=== PATIENT | female | born 1985 | race Hispanic/Latino ===

== ENCOUNTER 2024-10-04 08:39 | Emergency (ER) | payer SELFPAY ==
--- NOTE | 2024-10-04 09:09 | ED.GENADULT ---
HPI - General Adult General Chief complaint: Upper Respiratory Infection Stated complaint: urinary irritation/body aches/congestion Mode of arrival: ambulatory Limitations: no limitations and other History of Present Illness HPI narrative: Pt presents for evaluation of sick symptoms for the past three days. Symptoms include fever, body aches, cough, chest congestion, mild SOB and left sided otalgia. No chills, nausea or vomiting. No recent sick contacts to her knowledge. She does not smoke. She is also concerned about urinary symptoms she has experienced intermittently for the past year. Symptoms include urinary frequency, hesitancy and dysuria. She has a nexplanon. She is not aware of when her LMP was. She denies any vaginal bleeding Related Data Allergies Allergy/AdvReac Type Severity Reaction Status Date / Time No Known Allergies Allergy Unknown Verified 10/04/24 08:42 Review of Systems Review of Systems: CONSTITUTIONAL: Reports fever. Denies chills, or sweats. EYES: Denies visual changes, redness, or discharge. ENT: Reports clear rhinorrhea and left sided otalgia. Denies sore throat. CARDIOVASCULAR: Denies chest pain, palpitations, or edema. RESPIRATORY: Reports cough and mild dyspnea. GASTROINTESTINAL: Denies abdominal pain, nausea, vomiting, or diarrhea. GENITOURINARY: Reports urinary frequency, hesitancy and dysuria. SKIN: Denies rash or itching. MUSCULOSKELETAL: Reports generalized body aches. NEUROLOGIC: Denies headache, numbness, dizziness, or weakness. PSYCHIATRIC: Denies anxiety or depression. PMFSH Past Medical History Medical History No pertinent past medical history Surgical History Surgical History No pertinent past surgical history Family History Family History Mother Family history non-contributory Social History Social History (Updated 10/04/24 @ 09:19 by KAROLYN Whitman, ) Smoking status: Never smoker Substance use: never Gender identity (if verbalized by the patient): Female Spiritual care concerns: No Exam Narrative: GENERAL: Well-appearing, well-nourished, and in no acute distress. HEAD: Normocephalic, atraumatic. EYES: PERRLA and EOMI. ENT: Nares clear, no rhinorrhea or epistaxis. Mucous membranes moist. Oropharynx without tonsillar hypertrophy exudate or other lesions. Bilateral TMs pearly gruber nonbulging NECK: Supple. No adenopathy or masses. No carotid bruits or JVD CHEST: Clear to auscultation. No respiratory distress. No wheezes rales or rhonchi HEART: Regular rate and rhythm. No murmur heard. Normal peripheral pulses. ABDOMEN: Soft, nontender, nondistended, normal active bowel sounds. EXTREMITIES: Normal range of motion. No edema. SKIN: Warm, dry, no rash. NEURO: No focal deficits. Alert and oriented x3. PSYCH: Normal mood and affect. Course Course Emergency Course: This is a 39 year old female who presented today for respiratory and urinary symptoms. In terms of respiratory symptoms, her COVID and flu were negative. She does not have any adventitious lung sounds warranting CXR. She appears well clinically. Exam consistent with viral URI. In terms of her urinary symptoms, she has leukocytes present in urine today. Will send urine culture. Start Macrobid. Increase hydration. Follow up with primary provider. Go to the ER for worsening symptoms. Patient in agreement with plan care Level of Care: Express Care Visit Medical Decision Making Lab Data Labs: Lab Results 10/04/24 10/04/24 Range/Units 08:56 09:02 POC Urine Color Yellow POC Urine Clarity Clear POC Urine pH 6.0 POC Ur Specif [place] 1.030 POC Urine Protein 1+ (Negative) POC Ur Glucose (UA) Negative (Negative) POC Urine Ketones Negative (Negative) POC Urine Blood 1+ (Negative) POC Urine Nitrite Negative (Negative) POC Urine Bilirubin Negative (Negative) POC Urine Urobilinogen 0.2 POC U Leukocyte Esteras Trace (Negative) POC Urine HCG, Qual Negative (Negative) POC Influenza A Ag Negative (Negative) POC Influenza B Ag Negative (Negative) POC SARS CoV-2 Ag Negative (Negative) Discharge Plan Discharge Clinical Impression: Upper respiratory infection, viral, Urinary tract infection Patient Disposition: Home Condition: Stable Instructions: Antibiotic Form, Urinary Tract Infection in Women (DC), Upper Respiratory Infection (ED), Viral Syndrome (ED) Patient Language: [place] Prescriptions: New nitrofurantoin monohyd/m-cryst [Macrobid] 100 mg capsule 100 mg PO Q12H 7 Days Qty: 14 0RF Rx Instructions: must administer with a meal/food Follow-up/Referrals: Avtar Meléndez MD [Physician] - Time of Disposition: 09:29
[2024-10-04 09:24] LABS: EDCOVIDSCREEN Negative (Negative); EDINFLUASCREEN Negative (Negative); EDINFLUBSCREEN Negative (Negative)
[2024-10-04 09:24] LABS: BEDSIDEPREGUCG Negative (Negative); EDUAAPPEAR Clear; EDUABILI Negative (Negative); EDUABLOOD 1+ (Negative); EDUACOLOR1 Yellow; EDUAGLUCOSE Negative (Negative); EDUAKETONE Negative (Negative); EDUALEUKO Trace (Negative); EDUANITRATE Negative (Negative); EDUAPH 6.0; EDUAPROTEIN 1+ (Negative); EDUASPGRAVITY 1.030; EDUAUROBILI 0.2
== END 2024-10-04 09:30 | disposition home or self-care (01) ==
PROVIDERS: Emergency Provider Nurse Practitioner
DX: J06.9 Acute upper respiratory infection, unspecified (principal); B97.89 Other viral agents as the cause of diseases classified elsewhere; N39.0 Urinary tract infection, site not specified; Z20.822 Contact with and (suspected) exposure to COVID-19
CPT/HCPCS: 81003; 81025; 87086; 87426; 87804; 99203; G0463